=== PATIENT | male | born 1985 ===

== ENCOUNTER 2024-03-29 07:20 | Inpatient (IN) | payer MEDICAID, OTHER ==
[~2024-03-29] VITALS: Ht 167.6 cm; Wt 83.0 kg
[2024-03-29] MEDS: normal saline 1000ml 1,000 ML IV ONE (09:43)
[2024-03-29 09:50] LABS: BASOPHILS % (AUTO) 0.2 % (0-1); EOSINOPHILS # (AUTO) 0.2 X10'3 (0-0.9); EOSINOPHILS % (AUTO) 1.5 % (0-6); HEMATOCRIT 35.7 % (42.0-52.0); HEMOGLOBIN 11.7 g/dl (14.0-17.9); LYMPHOCYTES # (AUTO) 1.7 X10'3 (1.1-4.8); LYMPHOCYTES % (AUTO) 10.5 % (21-51); MEAN CORPUSCULAR HEMOGLOBIN 30.1 PG (27.0-31.0); MEAN CORPUSCULAR HGB CONC 32.8 g/dL (33.0-36.5); MEAN CORPUSCULAR VOLUME 91.8 FL (78-98); MEAN PLATELET VOLUME 7.4 FL (7.4-10.4); MONOCYTES # (AUTO) 1.4 X10'3 (0-0.9); MONOCYTES % (AUTO) 8.9 % (2-12); NEUTROPHILS # (AUTO) 12.5 X10'3 (1.8-7.7); NEUTROPHILS % (AUTO) 78.9 % (42-75); PLATELET COUNT 543 X10'3 (140-440); RED BLOOD COUNT 3.89 X10'6 (4.70-6.10); RED CELL DISTRIBUTION WIDTH 14.2 % (11.5-14.5); WHITE BLOOD COUNT 15.9 X10'3 (4.5-11.0)
[2024-03-29] MEDS: methylPREDNISolone sod succ 125mg/2ml vial IV ONE (10:02)
[2024-03-29 10:03] LABS: APTT 33 SECONDS (22-32); D-DIMER 1.56 MG/L FEU (0-0.50); PROTHROMBIN TIME 10.5 SECONDS (9.0-12.0)
[2024-03-29] MEDS: ipratropium/albuterol 3ml nebule NEB ONE (10:05)
[2024-03-29 10:08] VITALS: PULSE 117; RESP 20; O2SAT 96
[2024-03-29 10:14] VITALS: PULSE 118; RESP 22; O2SAT 97
[2024-03-29 10:18] LABS: ALANINE AMINOTRANSFERASE 34 U/L (12-78); ALBUMIN 2.6 G/DL (3.4-5.0); ALBUMIN/GLOBULIN RATIO 0.5 (1.1-1.5); ALKALINE PHOSPHATASE 129 IU/L (46-116); ANION GAP 8 (8-16); ASPARTATE AMINO TRANSFERASE 23 U/L (10-37); BILIRUBIN,TOTAL 0.6 MG/DL (0.1-1.0); BLOOD UREA NITROGEN 8 MG/DL (7-18); BUN/CREATININE RATIO 8.6 (10.0-20.0); CALCIUM 8.6 MG/DL (8.5-10.1); CHLORIDE 102 MMOL/L (99-107); CREATININE 0.93 MG/DL (0.60-1.10); GLUCOSE 95 MG/DL (70-104); POTASSIUM 3.7 MMOL/L (3.5-5.1); SODIUM 137 MMOL/L (135-145); TOTAL CARBON DIOXIDE 27.4 MMOL/L (24-32); TOTAL PROTEIN 7.4 G/DL (6.4-8.2); eCRCL 97 ML/MIN; eGFR > 90 ML/MIN
[2024-03-29 10:25] LABS: BILIRUBIN,DIRECT 0.2 MG/DL (0-0.3); ETHANOL < 10 MG/DL (<10); MAGNESIUM 1.8 MG/DL (1.5-2.4); PRO BRAIN NATRIURETIC PEPTIDE 37 PG/ML (0-125)
[2024-03-29] MEDS ORDERED: iohexol 350MG/ML 100ml bottle IV ONE (10:33)
[2024-03-29] MEDS: CefTRIAXone/D5W-Rocephin 1gm 50 ML IV ONE (12:01)
[2024-03-29] MEDS ORDERED: acetaminophen 325mg tablet PO PRN (12:20)
[2024-03-29] MEDS ORDERED: potassium Cl 20 mEq SR tablet PO PRN ×2 (12:20)
[2024-03-29] MEDS ORDERED: ondansetron/PF 4mg/2ml inj IV PRN (12:20)
[2024-03-29] MEDS ORDERED: albuterol 2.5 MG/3 ML nebule NEB PRN (12:20)
[2024-03-29] MEDS ORDERED: HYDROcodone/acetaminophen 10/325mg tab PO PRN (12:20)
[2024-03-29] MEDS ORDERED: magnesium sulf-water 4G/100mL 100 ML IV PRN (12:20)
[2024-03-29] MEDS ORDERED: mag hydrox/Alum hydrox/simeth 30ml oral suspension PO PRN (12:20)
[2024-03-29] MEDS ORDERED: magnesium sulf-water 2g/50mL 50 ML IV PRN (12:20)
[2024-03-29] MEDS ORDERED: potassium Cl 40MEQ/1/2NS 520ml 520 ML IV PRN (12:20)
[2024-03-29] MEDS ORDERED: HYDROcodone/acetaminophen 5mg/325mg tablet PO PRN (12:20)
[2024-03-29] MEDS: azithromycin/NS 500mg/250ml 250 ML IV ONE (12:37)
[2024-03-29 12:58] LABS: URINE AMPHETAMINE SCREEN POSITIVE (Neg); URINE BARBITUATE SCREEN NEGATIVE (Neg); URINE BENZODIAZEPINES SCREEN NEGATIVE (Neg); URINE CANNABINOID SCREEN NEGATIVE (Neg); URINE COCAINE SCREEN NEGATIVE (Neg); URINE METHADONE SCREEN NEGATIVE (Neg); URINE OPIATE SCREEN NEGATIVE (Neg); URINE PHENCYCLIDINE SCREEN NEGATIVE (Neg)
[2024-03-29 13:29] LABS: HIV ANTIBODY 1&2 RAPID NON-REACTIVE (Neg)
[2024-03-29] MEDS: ipratropium/albuterol 3ml nebule NEB SCH (15:00)
[2024-03-29] MEDS: nicotine 14mg patch - 24hr TD ONE (15:19)
[2024-03-29] MEDS: methylPREDNISolone sod succ 125mg/2ml vial IV SCH (17:49)
[2024-03-29] MEDS: budesonide 0.5mg/2ml UD nebule IH SCH (19:56)
[2024-03-29 19:57] VITALS: PULSE 114; RESP 16; O2SAT 95
[2024-03-29] MEDS: K and/or MAG REPLACEMENT MC SCH (20:00)
[2024-03-29] MEDS: docusate sod 100mg capsule PO SCH (20:00)
[2024-03-29 20:11] VITALS: PULSE 115; RESP 18
[2024-03-29] MEDS: normal saline 1000ml 1,000 ML IV SCH (20:43)
[2024-03-29] MEDS: enoxaparin 40mg/0.4ml syringe SQ SCH (20:43)
[2024-03-29 23:25] VITALS: PULSE 101; RESP 31; O2SAT 95
[2024-03-29 23:31] VITALS: PULSE 104; RESP 30
[2024-03-30] VITALS (9 sets, daily range): BP systolic 114–124; BP diastolic 53–67; PULSE 98–114; RESP 18–28; TEMP 97.8–98.3; O2SAT 92–100
[2024-03-30] MEDS: acetaminophen 325mg tablet PO PRN (04:12)
[2024-03-30] MEDS: CefTRIAXone/D5W-Rocephin 1gm 50 ML IV SCH (07:35)
[2024-03-30] MEDS: azithromycin 250mg tablet PO SCH (07:40)
[2024-03-30] MEDS: nicotine 14mg patch - 24hr TD SCH (12:07)
[2024-03-30] MEDS ORDERED: BUDE10.2 INH (12:38)
[2024-03-30] MEDS ORDERED: PRED20TA PO (12:38)
[2024-03-30] MEDS ORDERED: AMOX-580 PO (12:38)
== END 2024-03-30 14:10 | disposition home or self-care (01) | DRG 871 ==
LOC: ER 07:22 → ED HOLD 12:26 → PCU 3S 23:55
PROVIDERS: ADMIT Family Medicine; ATTEND Family Medicine
PROC: B32T1ZZ Computerized Tomography (CT Scan) of Left Pulmonary Artery using Low Osmolar Contrast (ICD-10-PCS; principal; 2024-03-29)
PROC: B3201ZZ Computerized Tomography (CT Scan) of Thoracic Aorta using Low Osmolar Contrast (ICD-10-PCS; 2024-03-29)
PROC: B32S1ZZ Computerized Tomography (CT Scan) of Right Pulmonary Artery using Low Osmolar Contrast (ICD-10-PCS; 2024-03-29)
DX: A41.9 Sepsis, unspecified organism (principal); J18.9 Pneumonia, unspecified organism; J44.0 Chronic obstructive pulmonary disease with (acute) lower respiratory infection; J44.1 Chronic obstructive pulmonary disease with (acute) exacerbation; Z20.822 Contact with and (suspected) exposure to COVID-19; F15.10 Other stimulant abuse, uncomplicated; Z66 Do not resuscitate; F17.210 Nicotine dependence, cigarettes, uncomplicated; Z88.0 Allergy status to penicillin
CPT/HCPCS: 36415; 71046; 71275; 80048; 80076; 80305; 80320; 83605; 83735; 83880; 84145; 84484; 85025; 85379; 85610; 85730; 86703; 87040; 87070; 87077; 87185; 87502; 87503; 87811; 93005; 94640; 94760; 99285; A4615; G0378; J0456; J0696; J1650; J2919; J7030; Q9967